=== PATIENT | female | born 1950 | race Caucasian/White ===

== ENCOUNTER 2020-12-07 13:52 | Observation (INO) | payer MEDICARE ==
[~2020-12-07] VITALS: Ht 175.3 cm; Wt 97.3 kg
--- NOTE | 2020-12-07 19:26 | NUR ---
12/07/201925 Shakira Cosme 1914: PT ARRIVES TO PACU WITH ORAL AIRWAY IN PLACE, SHE REMOVES IT HERSELF AT 1917. DESIRAE 1922: DEALER ACCOUNT MANAGER MARIALUISA FONSECA AT THE BEDSIDE TO DO BLOCK.
--- NOTE | 2020-12-07 20:10 | NUR ---
pt ARRIVED FROM SURGERY. CHECO RN IN ROOM TO DO ADMISSION. pt DROWSY. NO NEEDS AT THIS TIME. CHECO RN REMAINS AT BEDSIDE.
--- NOTE | 2020-12-07 20:45 | NUR ---
ASSESSMENT DONE. pt INCONT OF URINE. PERICARE DONE, DEPENDS IN PLACE. pt IS NUMB FROM HER FEET TO KNEES. TINGLING FELT WITH TOUCH TO KNEES. DRESSING CDI. SCD AND HEEL PROTECTOR ON RIGHT LEG. pt DENIES PAIN. LUNGS CLEAR. CPOX IN PLACE. CALL LIGHT WITHIN REACH.
--- NOTE | 2020-12-07 21:11 | NUR ---
IN TO DO VITALS. pt DROWSY, LEFT FOR THE EVENING. DENIES PAIN AT THIS TIME. 2L O2 REMAINS IN PLACE TO KEEP O2 SAT ABOVE 90%. SHALLOW RESPIRATIONS. CALL LIGHT WITHIN REACH.
--- NOTE | 2020-12-07 22:00 | NUR ---
INTO PT ROOM, WHILE MODEL MAKING SUPERVISOR DOES VITALS. PT MORE AWAKE, ABLE TO FEET RN TOUCHING TOES ON BOTH FEET, SAY THE RIGHT ONE IS MORE "TINGLING" THAN THE LEFT, BUT ABLE TO FEEL THE TOUCH OF THE LEFT TOES. NO OTHER NEEDS AT THIS TIME.
--- NOTE | 2020-12-07 22:06 | NUR ---
IN WITH PACKAGING LINE OPERATOR TO ASSIST WITH POSTOP VITALS, NO FURTHER NEEDS
--- NOTE | 2020-12-07 22:23 | NUR ---
IN TO DO 1 HOUR CHECK. pt DENIES PAIN. SCHEDULED MEDICATIONS GIVEN (SEE MAR). PULSE TO LEFT EXTREMITY, CAP REFILL GOOD. DRESSING CDI. ATE A LITTLE JELLO. CALL LIGHT WITHIN REACH.
--- NOTE | 2020-12-07 23:20 | NUR ---
IN TO DO HOURLY CHECK. pt SNORES AND HAS APNEIC PERIODS WOKE TO VOICE, REPORTS THIS IS BASELINE. VITALS DONE. MEDICATIONS GIVEN (SEE MAR). NO CHANGES TO ANKLE. DENIES PAIN. CALL LIGHT WITHIN REACH
--- NOTE | 2020-12-08 02:51 | NUR ---
IN TO GIVE SCHEDULED MEDICATION. pt WOKE TO VOICE. DENIES PAIN AT THIS TIME. CAN FEEL TOUCH IN HER LOWER EXTREMITIES BUT IT "FEELS FUNNY". ASSISTED TO SIT ON THE EDGE OF THE BED, DIZZY. BACK TO BED 2PA. pt ASSISTED WITH BOOST. REPORTED FEELING BETTER LYING DOWN. INCONT VOID, SUNITA CARE DONE. CALL LIGHT WITHIN REACH.
--- NOTE | 2020-12-08 02:51 | NUR ---
IN TO ASSIST RN WITH PIVOTING PT TO THE BSC, PT DANGLED AT THE EGDE OF THE BED, FELT TO DIZZY/NUASOUS WITH ACTIVITY, LAYED PT BACK TO BED, BOOSTED, COOL WASHCLOTH AND EMISIS BAG PROVIDED, ICE WATER REFILLED, NO FURTHER NEEDS AT THIS TIME
--- NOTE | 2020-12-08 03:50 | NUR ---
IN TO ASSIST RN WITH CHANGING PT ATTENDS, NEW ON AND NEW SUNITA PAD, PT BOOSTED IN BED, NO FURTHER NEEDS AT TIME
--- NOTE | 2020-12-08 06:00 | NUR ---
IN TO GIVE MEDICATION. pt RESTING IN BED. REPORTED 1/10 PAIN. SCHEDULED MEDICATIONS GIVEN (SEE MAR). DRESSING CDI. CALL LIGHT WITHIN REACH. BRIEF DRY.
--- NOTE | 2020-12-08 07:39 | NUR ---
REPORT GIVEN TO EMMETT COHEN. pt ATTENDS DRY. USED BEDPAN, URINE CONCENTRATED/ORANGE. PERICARE DONE. ASSISTED TO REPOSITION. NO FURTHER REQUESTS AT THIS TIME. CALL LIGHT WITHIN REACH.
--- NOTE | 2020-12-08 08:00 | NUR ---
RECEIVED REPORT AT AROUND 0700. PT WAS AWAKE IN BED. PT WAS PUT ON RA TRIAL AND QUICKLY DROPPPED INTO THE MIS 80'S%. PT WAS PUT BACK ON 2L O3 NC FOR NOW.
--- NOTE | 2020-12-08 10:00 | NUR ---
MD ARDON WAS INFORMED ABOUT O2 DESATURATION ISSUES. CHEST X-RAY TO BE DONE FOR NOW. LOBES ARE CLEAR, PEDIS PULSES +2, CAST ON LEFT LOWER LEG IS WDL. WILL COMNTINUE TO MONITOR.
--- NOTE | 2020-12-08 10:34 | OR ---
[facility] [place] [facility] [address] [place], [place] [address] Signed DATE OF OPERATION: 12/07/2020 SURGEON: Sarai Nolan MD PREOPERATIVE DIAGNOSIS: Left ankle fracture dislocation, bimalleolar. POSTOPERATIVE DIAGNOSIS: Left ankle fracture dislocation, bimalleolar. PROCEDURE PERFORMED: Open reduction and internal fixation of left ankle bimalleolar. PRISON KEEPER: Martine Hawley PA-C. Martine was present and critical for all portions of procedure. ANESTHESIA: Spinal. BLOOD LOSS: Minimal. TOURNIQUET TIME: 50 minutes. IMPLANTS: Synthes 7-hole 1/3rd tubular plate with eight screws. BRIEF HISTORY: Arpita is a 70-year-old female who suffered a trip and fall around noon. She had immediate pain and deformity in her ankle and was taken to the emergency department, where radiographs showed a dislocation as well as a bimalleolar fracture. The ER doctor attempted several reductions in the ER without success. I felt that given the time that she was out and the unsuccessful reductions that she would be best served by closed reduction in the operating room, and either an external fixator or open reduction and internal fixation. She understood and wished to proceed. I spoke with both her and her and discussed risks and benefits. DESCRIPTION OF PROCEDURE: Electronically Signed By: SARAI NOLAN MD 12/08/20 1034 PATIENT NAME: ARPITA MAGALLANES OPERATIVE REPORT DATE OF : 52 REPORT #: [id number] PHYSICIAN: SARAI NOLAN MD PCP: NIC DENSON PAC REPORT IS CONFIDENTIAL AND NOT TO BE RELEASED WITHOUT AUTHORIZATION [facility] [address] [place], [place] [address] Signed Once consent was obtained, she was taken to the operating room. After adequate anesthesia, she was placed on operating table. All downside pressure points well padded. Hip bump was placed and once adequate relaxation was obtained, the ankle was reduced and was relatively stable. There was a large spike on the lateral malleolus fracture but there actually was no butterfly fragment. There was a small posterior malleolar fracture as well. The skin was with minimal swelling and no significant abrasions or issues in terms of , so we elected to proceed with the open reduction and internal fixation. Once this determination was made, her leg was prepped and draped in a standard sterile fashion. The leg was exsanguinated using Esmarch bandage and tourniquet inflated to 250 mmHg. The ankle was approached through a lateral incision taken through the skin and subcutaneous tissue with care taken to dissect down to the bone to avoid any damage to the superficial peroneal nerve. The periosteum was incised longitudinally and elevated and the hematoma was evacuated. The fracture was then distracted, cleaned and reduced and held with a clamp. Again, a long posterior spike was held in position. It was too small to receive any screws. A single screw was then placed from anterior to posterior in A standard AO lag technique. The clamp was removed. The seven hole plate was then centered over the fracture and the plate was held with a single screw. Reduction and plate placement were checked using image intensifier and found to be satisfactory. The proximal four screws were drilled in appropriate length. Standard 3.5 mm screws were placed, 3 locking screws were placed in the distal fragment. Once this was accomplished, the wound was copiously irrigated with antibiotic solution. Final radiographs were taken. The posterior malleolus was noted to be small bit unstable, so we elected to go ahead and reduce it from digital pressure posteriorly as well as putting the foot into dorsiflexion. We then placed a 3.5 mm screw from anterior to posterior engaging the central portion of the posterior malleolar fragment. This was quite stable at the end of the procedure. All wounds were again copiously irrigated and closed. The anterior wound was closed with 2-0 nylon. The lateral wound was closed in layers using 2-0 Monocryl and 2-0 nylon. The wound was dressed with Allevyn dressing and a bulky Vazquez dressing with posterior splint. She tolerated the procedure well. All sponge, needle, and instrument counts were correct. Sarai Nolan MD BA/MODL /[id number] Electronically Signed By: SARAI NOLAN MD 12/08/20 1034 PATIENT NAME: ARPITA MAGALLANES OPERATIVE REPORT DATE OF : 52 REPORT #: [id number] PHYSICIAN: SARAI NOLAN MD PCP: NIC DENSON PAC REPORT IS CONFIDENTIAL AND NOT TO BE RELEASED WITHOUT AUTHORIZATION [address] [address] Signed Copies: ~ Electronically Signed By: SARAI NOLAN MD 12/08/20 1034 PATIENT NAME: ARPITA MAGALLANES OPERATIVE REPORT DATE OF : 52 REPORT #: [id number] PHYSICIAN: SARAI NOLAN MD PCP: NIC DENSON PAC REPORT IS CONFIDENTIAL AND NOT TO BE RELEASED WITHOUT AUTHORIZATION
[2020-12-08] MEDS ORDERED: SENNA LAX8.6 MG PO (10:37)
[2020-12-08] MEDS ORDERED: CEPHALEXIN500 M1 PO (10:38)
[2020-12-08] MEDS ORDERED: HYDROCODON-ACE1 EA14 PO (10:39)
--- NOTE | 2020-12-08 11:00 | NUR ---
Spoke with pt for assessment. She lives in a 1 story home with 1 step She has a 4ww walker which was loaned to her. Does not use DME. Active. Dr. Nolan arrives and discusses discharge. Talked with her about cont. to need 02 and will have Hospitalist evaluate. Pt cont. to have good pain control in L foot from block. Pt plans on returning home with her spouse to assist her. Will order 2 w[address] walk[address] per order Dr. Nolan.
--- NOTE | 2020-12-08 11:01 | NUR ---
CALLED [facility] TO NOTIFY OF BIPAP ORDER PLACED BY .
--- NOTE | 2020-12-08 11:30 | NUR ---
Faxed Rx, face sheet, note to [facility] requesting a walker with 2 wheels.
--- NOTE | 2020-12-08 12:00 | NUR ---
NO CHANGES NOTED WITH SECOND ASSESSMENT. PT AT THIS TIME IS STILL ON C-PAP.
--- NOTE | 2020-12-08 12:30 | NUR ---
Lexx delivered to my office by Kim. Hallman placed in pts. room.
--- NOTE | 2020-12-08 12:48 | NUR ---
MED REC COMPLETE
--- NOTE | 2020-12-08 12:57 | NUR ---
PT FAILED C-PAP TRIAL AND REMAINS ON 2L O2. CHEST X-RAY REPORT IS STILL NOT AVAILABLE. CALLED IMAGING X2 SO FAR.
--- NOTE | 2020-12-08 13:36 | NUR ---
TRIED TO PUT PT ON RA ONCE MORE. IT DID TAKE A BIT LONGER BUT PT O2 SATS DROPPED AGAIN TO 86% RA. PT BACK ON 2L O2. MD ARDON AWARE.
--- NOTE | 2020-12-08 14:51 | NUR ---
PT AT THIS TIME IS ON RA WITH O2 SATS HOLDING >90% SO FAR. WILL CONTINUE TO [facility].
--- NOTE | 2020-12-08 14:55 | NUR ---
PT NOW AGAIN IS ON 2L O2 NC. PT O2 SATS DROPPED TO 75% ON RA WITH A GOOD WAVE FORM. IT DID TAKE A FEW MINUTES. NON THE LESS PT CANNOT STAY ON RA AT THIS TIME.
--- NOTE | 2020-12-08 16:39 | NUR ---
LOBES ARE CLEAR. PEDIS PULSES WDL, PT STILL DOES HAVE SOME NUMBNESS PRESENT IN HER LEFT FOOT/TOES. NO INCREASE IN NUMBNESS THOUGH. TOES ON LEFT FOOT ARE WARM TO TOUCH. WAITING ON LAB RESULTS IN REGARDS TO HER HYPOXIA ISSUE.
--- NOTE | 2020-12-08 17:28 | NUR ---
SINCE START OF SHIFT I HAVE BEEN UNABLE TO WEAN PT OFF O2. MD ARANGO IS NOW CONSULTING AND LABS HAVE BEEN DRAWN. WE ARE STILL WAITING ON D-DIMER AT THIS TIME. ABG/ BNP ALSO DONE. PT ALL SHIFT HAS REMAINED ON 2L O2. PT ALSO FAILED TRIAL WITH C-PAP ORDERED BY MD ARDON. AT START OF SHIFT PT WAS BARDY IN THE 40'S MOSTLY AND HAD SEVERE DIZZY SPELLS ALSO. THIS NOW HAS SUBSIDED SO FAR. HR NOW IN THE 60'S. MD ARDON DID D/C ULTRAM WELL. LLE PEDIS PULSES WDL, TOES ARE WARM TO TOUCH. NUMBNESS IN LLE IS PERSISTING BUT NOT GETTING WORSE. LOBES ARE CLEAR. URINE OUTPUT IS WDL AND PO INTAKE HAS INCREASED THIS SHIFT. PT WILL NOT D/C TONIGHT IT SEEMS.
--- NOTE | 2020-12-08 20:40 | NUR ---
CALL LIGHT ON. pt UP TO BSC SBA FWW TOE TOUCH WITH LEFT FOOT. VOID. BACK TO BED. NO FURTHER REQUESTS AT THIS TIME. CALL LIGHT WITHIN REACH.
--- NOTE | 2020-12-08 21:04 | NUR ---
CALLED FOR LAB VALUES. LAB RESULTS READ AND READ BACK BY PHYSICIAN. NO NEW ORDERS AT THIS TIME.
--- NOTE | 2020-12-08 21:45 | NUR ---
IN ROOM FOR EVENING ASSESSMENT. PT IS AWAKE AND HAD JUST TAKEN EVENING MEDS FROM CHARGE NURSE ROLO. PT IS ALERT AND TALKATIVE, DENIES PAIN AT THIS TIME. CMS INTACT, PT REPORTS FEELING IN TOES HAS RETURNED, CAP REFILL GOOD. CRACKLES HEARD IN LLL, OTHERWISE CLEAR. BOWEL TONES ACTIVE. SCDS APPLIED TO RIGHT LEG, ICE PACK REPOSITIONED TO LEFT ANKLE. PT REMAINS ON 2L NC. VSS. WATER REFILLED. PT DEMONSTRATED KNOWLEDGE ON USING CALL LIGHT. CALL LIGHT WITHIN [facility].
--- NOTE | 2020-12-08 23:11 | NUR ---
Up to bsc, voided small amount yellow urine, L leg dressing intact, SBA/FWW, scds R leg, tolerated well,
--- NOTE | 2020-12-09 00:05 | NUR ---
ROUNDS: PT AWAKES DOOR IS OPENED. PT STATES THAT HER L LEG IS UNCOMFORTABLE. REPOSITIONED LEG ONTO PILLOW TO ELEVATE. PT DENIES FURTHER NEEDS. CALL LIGHT WITHIN REACH.
--- NOTE | 2020-12-09 02:36 | NUR ---
CALL LIGHT ANSWERED. PT REQUESTS WARM BLANKET AND HELP REPOSITIONING IN BED. URINE HAT EMPTIED. CALL LIGHT WITHIN REACH.
--- NOTE | 2020-12-09 05:45 | NUR ---
IN ROOM FOR ASSESSMENT AND MEDS. PT HAS BEEN GETTING UP TO BSC INDEPENDENTLY USING FWW. URINE OUTPUT IS GOOD. PT REPORTS PAIN IS VERY MILD AND RATES PAIN 1/10 IN LEFT ANKLE. CMS INTACT. VSS. SPO2 UPPER 90S ON 2L NC. PT HAS NOT HAD BM SINCE SURGERY AND VERY LITTLE FLATULENCE. LEFT LEG ELEVATED. WATER FRESHENED. NO FURTHER CARE NEEDS AT THIS TIME. CALL LIGHT WITHIN REACH.
--- NOTE | 2020-12-09 08:45 | NUR ---
Scheduled medications administered, assessment complete. Pt states pain under control, SPO2 95% on 2L, titrated to 1.5L at this time, pt states no SOB. Refuses miralax at this time due to loose stools this am. CMS intact, cast to L ankle intact. Updated regarding plan of care, agreeable to all. Call light in reach, no further needs at this time.
--- NOTE | 2020-12-09 11:06 | NUR ---
Patient had a wash cloth to wipe her face. Patient went to the bathroom and hand hygiene was encouraged. Patient went back to bed SBA. Patient had [facility] then worked with physical therapy afterwards. Vitals were done and now the patient is sitting in the chair talking with their visitor. Call light is in reach and there are no requests at this time.
--- NOTE | 2020-12-09 12:15 | NUR ---
Call light answered, pt requests to use restroom, 1PA with cane. Reports no pain, on room air at this time, spo2 93% after ambulation. Pt has no further needs, call light in reach
--- NOTE | 2020-12-09 15:00 | NUR ---
Scheduled tylenol administered, pt states L ankle not painful, but beginning to feel discomfort, rates pain 1/10 at this time. PRIVATE WATCHMAN Sylvia in room for vitals, I'O's. pt states no further needs at this time
--- NOTE | 2020-12-09 16:15 | NUR ---
Patient requested and was recieved a bed bath. She is comfortable in her bed. She has no requests at this time and the call light is in reach. Her gown was changed. She said her leg cast itches.
--- NOTE | 2020-12-09 16:25 | NUR ---
CALLED GAVE UPDATE PT STATUS WELL REPORTING THAT HE FEELS SHE IS GOOD FOR DISCHARGE PER HIS CONSULT. SAID HE IS GOOD WITH DISCHARGE.
[2020-12-09] MEDS ORDERED: LOSARTAN POTASS50 MG PO (16:32)
--- NOTE | 2020-12-09 17:18 | NUR ---
Discharge teaching provided, pt verbalizes understanding and has no questions. New medications discussed, follow up appointments discussed and pt confirms compliance with plan of care. Family in room to provide ride home, clothing brought, JAMIE Ward in room to assist with dressing. Dinner provided, pt has no further needs.
--- NOTE | 2020-12-09 17:57 | NUR ---
Hydrocodone 7.5mg/APAP 325mg #6 tablets dispensed from our pharmacy as RX per Dr Nolan. RX and RX counseling given to patient by this pharmacist
--- NOTE | 2020-12-10 12:53 | EKG ---
[facility] [address] [facility] [place], [place] [address] Signed Sinus tachycardia Left ventricular hypertrophy with repolarization abnormality Inferior infarct , age undetermined Abnormal ECG No previous ECGs available Confirmed by YEN ARANGO MD ([id number]) on 12/10/2020 12:52:58 PM Electronically Signed By: YEN ARANGO MD 12/10/20 1253 PATIENT NAME: ABDIRASHID MAGALLANES Electrocardiogram DATE OF : 52 PHYSICIAN: YEN ARANGO MD REPORT #: [id number] REPORT IS CONFIDENTIAL AND NOT TO BE RELEASED WITHOUT AUTHORIZATION
== END 2020-12-09 17:40 | disposition home or self-care (01) ==
LOC: ED 13:52 → MS 13:53
PROVIDERS: ADMIT Specialist; ATTEND Specialist
PROC: 0QSH04Z Reposition Left Tibia with Internal Fixation Device, Open Approach (ICD-10-PCS; 2020-12-07)
PROC: 0QSK04Z Reposition Left Fibula with Internal Fixation Device, Open Approach (ICD-10-PCS; principal; 2020-12-07 18:00)
DX: S82.842A Displaced bimalleolar fracture of left lower leg, initial encounter for closed fracture (principal); W10.9XXA Fall (on) (from) unspecified stairs and steps, initial encounter; G89.18 Other acute postprocedural pain; J96.01 Acute respiratory failure with hypoxia; I10 Essential (primary) hypertension; J45.909 Unspecified asthma, uncomplicated; Z91.040 Latex allergy status; Z91.010 Allergy to peanuts; Z20.822 Contact with and (suspected) exposure to COVID-19
CPT/HCPCS: 01480; 27840; 36600; 64445; 64447; 71045; 73600; 73610; 76942; 80048; 80053; 82803; 85025; 85379; 93005; 93010; 94660; 94762; 96375; 96376; 97110; 97116; 97161; 99285-25; A9270; C1713; C9803; G0378; J0690; J0735; J1100; J1160; J1170; J1885; J1940; J2001; J2250; J2274; J2405; J2704; J2765; J3010; J7121; U0003

== ENCOUNTER 2021-08-17 07:20 | Day surgery (SDC) | payer MEDICARE ==
[~2021-08-17] VITALS: Ht 175.3 cm; Wt 85.9 kg
[~2021-08-17 07:20] MED LIST: CEPHALEXIN500 M1 PO; HYDROCODON-ACE1 EA14 PO; HYZAAR 50-12.51 EACH PO; K-TAB ER20 MEQ; LOSARTAN POTASS50 MG PO; METOPROLOL SUCC25 MG PO; SENNA LAX8.6 MG PO; VITAMIN D325 MC2 PO
[2021-08-17] MEDS ORDERED: HYDROCODON-ACE1 EA10 PO (09:45)
[2021-08-17] MEDS ORDERED: CELECOXIB200 MG PO (09:45)
--- NOTE | 2021-08-17 09:53 | NUR ---
08/17/21 0953 Catie Edmond 0953 PATIENT ARRIVES TO PACU RESTING WITH EYES CLOSED. OPENS EYES TO VERBAL STIMULI. RESP EVEN AND UNLABORED, MASK AT 6 LITERS. SATS >92%. ENCOURAGED TO COUGH AND DEEP BREATHE, PATIENT FOLLOWS COMMANDS. DENIES PAIN OR NAUSEA.
--- NOTE | 2021-08-17 11:17 | NUR ---
REVIEWED DISCHARGE INSTRUCTIONS WITH PT AT BEDSIDE. PT EATING CRACKERS AND SIPPING WATER. CONTINUES TO DENY NAUSEA OR PAIN. STEADY ON FEET WITH ONE PERSON STAND BY ASSIST FOR AMBULATION TO BR. LARGE UNMEASURED URINE. RETURNED TO BED AND ASSISTED PATIENT WITH DRESSING. NOTED SWELLING IN AREA OF SURGERY. DRESSING REMAINS CDI. MD NOTIFIED OF SWELLING AND ORDERS RECIEVED TO APPLY ABD AND TAJ WRAP - THIS IS DONE. PT DISCHARGED WITH INSTRUCTIONS. INSTRUCTIONS REVIEWED WITH AT THE CAR.
--- NOTE | 2021-08-17 20:41 | OR ---
[facility] [address] [place], [place] [address] Signed DATE OF OPERATION: 08/17/2021 SURGEON: Sarai Nolan MD PREOPERATIVE DIAGNOSIS: Painful hardware, left ankle. POSTOPERATIVE DIAGNOSIS: Painful hardware, left ankle. PROCEDURE PERFORMED: Removal of hardware, left ankle. QUALITY CONTROL ENGINEERING TECHNICIAN: None. ANESTHESIA: MAC. TOURNIQUET TIME: 30 minutes. BRIEF HISTORY: Arpita is a 70-year-old female with progressive worsening of pain over her hardware laterally. She had an ankle fracture that was fixed with plate and screws, this healed uneventfully. The patient continued to have a discomfort. Risks and benefits of hardware removal including the lateral plate and screws in the fibula, but not in the anterior tibia. She understood and wished to proceed. Once consent was obtained, she was taken to the operating room. After adequate anesthesia, she was placed on the operating table. Hip bump was placed and well-padded proximal thigh tourniquet was placed. The leg was then prepped and draped in a standard sterile fashion, exsanguinated using Esmarch bandage and tourniquet inflated to 250 mmHg. The prior incision was marked out and carried through skin and subcutaneous tissue. This was taken directly down to the lateral fibula and the periosteum and scar tissue was cleaned off the plate. The lag screw in the anterior portion was then removed after dissecting it free of overlying soft tissue. The seven screws in that plate were then removed sequentially starting at the top and going distally. The plate was then levered off the distal fibula and the screw holes were all curetted. Wound was copiously irrigated with normal saline. The periosteum was closed using 3-0 Monocryl, the subcutaneous tissue with 3-0 Monocryl, and the skin with 3-0 StrataFix. The wound was then sealed with Electronically Signed By: SARAI NOLAN MD 08/17/212040 PATIENT NAME: ARPITA MAGALLANES OPERATIVE REPORT DATE OF : 52 REPORT #: [id number] PHYSICIAN: SARAI NOLAN MD PCP: NIC DENSON PAC REPORT IS CONFIDENTIAL AND NOT TO BE RELEASED WITHOUT AUTHORIZATION [facility] [address] [place] [id number] Signed Dermabond and Acticoat dressing was applied. The patient was awakened and taken to the recovery room in satisfactory condition. All sponge, needle, and instrument counts were correct. Sarai Nolan MD BA/MODL /[id number] Copies: ~ Electronically Signed By: SARAI NOLAN MD 08/17/21 2041 PATIENT NAME: ARPITA MAGALLANES OPERATIVE REPORT DATE OF : 52 REPORT #: [id number] PHYSICIAN: SARAI NOLAN MD PCP: NIC DENSON PAC REPORT IS CONFIDENTIAL AND NOT TO BE RELEASED WITHOUT AUTHORIZATION
== END 2021-08-17 11:05 | disposition home or self-care (01) ==
LOC: DS 07:20
PROVIDERS: ATTEND Specialist
PROC: 0SPG0JZ Removal of Synthetic Substitute from Left Ankle Joint, Open Approach (ICD-10-PCS; principal; 2021-08-17 09:20)
DX: T84.84XA Pain due to internal orthopedic prosthetic devices, implants and grafts, initial encounter (principal); G89.18 Other acute postprocedural pain; I10 Essential (primary) hypertension; I25.10 Atherosclerotic heart disease of native coronary artery without angina pectoris; Z88.8 Allergy status to other drugs, medicaments and biological substances; Z87.81 Personal history of (healed) traumatic fracture; Z91.040 Latex allergy status; Z88.5 Allergy status to narcotic agent; Z91.010 Allergy to peanuts; Y79.2 Prosthetic and other implants, materials and accessory orthopedic devices associated with adverse incidents
CPT/HCPCS: 64447; 76942; J0690; J1100; J2001; J2250; J2405; J2704; J2795; J3010; J7121